=== PATIENT | female | born 2000 ===

== ENCOUNTER 2018-06-27 18:24 | Emergency (ER) | payer SELFPAY ==
[2018-06-27] MEDS ORDERED: FAMOTIDINE 20 MG TAB PO ONE (18:30)
[2018-06-27] MEDS ORDERED: NS 1,000 ML IV ONE (18:30)
[2018-06-27] MEDS ORDERED: predniSONE 20 MG TAB PO ONE (18:30)
--- NOTE | 2018-06-27 18:32 | EDPHY ---
H & P Time Seen by Provider: 06/27/18 18:24 HPI/ROS: CHIEF COMPLAINT: Allergic reaction HISTORY OF PRESENT ILLNESS: The patient is a 26 y/o female arriving via EMS from urgent care for evaluation of a possible allergic reaction after eating a scarlett around 16:00. Shortly after eating it she developed itchiness in her throat, hives on her extremities, and felt shaky. She has some prior history of reaction to mangos, but never this severe. She went to urgent care and by EMS report her BP was 70/40 so staff put her flat and put cold water on her. They did not administer any medications per EMS. On EMS arrival, she was alert and oriented with a BP of 110/40. EMS administered 50mg IV Benadryl and 4mg IV Zofran en route here. Patient currently complains of feeling shaky and cold. She denies throat tightness, pruritus, dyspnea, difficulty swallowing, lightheadedness, or other complaints. REVIEW OF SYSTEMS: A comprehensive 10 system review of systems is otherwise negative aside from elements mentioned in the history of present illness and medical decision making. Past medical history: Some prior reactions to mangoes Past surgical history: Denies Family history: Noncontributory Social history: Social alcohol and marijuana use. [employer] student. Friends at bedside. Adult Physical: General Appearance: Alert, no acute distress. Mildly tremulous. Eyes: Pupils equal and round, no conjunctival injection, no discharge. ENT, Mouth: Mucous membranes are moist, no oropharyngeal erythema or edema. No angioedema. No stridor. Neck: No lymphadenopathy, supple. Trachea midline. Respiratory: Lungs are clear to auscultation; no wheezes, rales, or rhonchi. Trachea midline. Cardiovascular: Regular rate and rhythm; no murmur, rub, or gallop. Gastrointestinal: Abdomen is soft and non tender, no masses or organomegaly. Skin: Skin is dry, hives on arms, splotchy macular erythema on legs. Distal extremities mildly cool. Back: Nontender to palpation over the thoracolumbar spine. Extremities: No lower extremity edema, no calf tenderness or swelling. Neurological: Alert and oriented. Moving all four extremities easily and equally. Psychiatric: Normal affect. Constitutional: Initial Vital Signs Temperature (C) 36.6 C 06/27/18 18:31 Heart Rate 86 06/27/18 18:31 Respiratory Rate 16 01/13/19 18:31 Blood Pressure 107/79 06/27/18 18:31 O2 Sat (%) 99 06/27/18 18:31 O2 Delivery Mode Room Air O2 (L/minute) 2 Allergies/Adverse Reactions: scarlett Allergy (Verified 06/27/18 18:31) Home Medications: Medication Instructions Recorded predniSONE 20 mg PO DAILY #3 tablet 06/27/18 Medical Decision Making ED Course/Re-evaluation: 18 y/o female presents from urgent care with improving throat tightness, hives, pruritus after eating mangoes this afternoon, which she thinks she is allergic to. Airway is patent and breath sounds are clear. She has scattered hives on her arms and on her legs on exam. Plan for monitoring and further symptom management with 1L IV NS, 40mg PO Pepcid, 60mg PO prednisone, in addition to the Benadryl and IV fluids that she has already received. She did not receive epinephrine and I do not think that she needs any at this point. Re-evaluated at 7:20 p.m.. She is resting comfortably. Lungs are clear. No oral pharyngeal edema. Hives diminished. Re-evaluated at 8:30 p.m.. Lungs are clear. Oropharynx without edema. No hives. She is being discharged home. Differential Diagnosis: I considered a differential diagnosis that includes but is not limited to anaphylaxis, urticaria, allergic reaction, angioedema, syncope. - Data Points Medications Given: Discontinued Medications Famotidine (Pepcid) 40 mg PO EDNOW ONE Stop: 06/27/18 18:31 Last Admin: 06/27/18 18:36 Dose: 40 mg Sodium Chloride (Ns) 1,000 mls @ 0 mls/hr IV ONCE ONE; Wide Open PRN Reason: Protocol Stop: 06/27/18 18:31 Last Admin: 06/27/18 18:35 Dose: 1,000 mls Prednisone (Prednisone) 60 mg PO EDNOW ONE Stop: 06/27/18 18:31 Last Admin: 06/27/18 18:36 Dose: 60 mg Departure - Departure Disposition: Home, Routine, Self-Care Clinical Impression: Allergic reaction Qualifiers: Encounter type: initial encounter Qualified Code(s): T78.40XA - Allergy, unspecified, initial encounter Condition: Good Instructions: Food Allergy (ED), Anaphylaxis (ED) Additional Instructions: Do not eat scarlett. Take the prednisone as prescribed for the next three days. Take Pepcid (buy it over the counter) for the next three days--this has antihistamine properties and will also help with any discomfort that you might have as a result of taking prednisone. If you develop itching or hives, take benadryl 25 mg ( follow instructions on the package). If you feel itchy try one of the Aveeno anti-itch lotions or Sarna lotion. I recommend following up with an route sales delivery driver. Referrals: [facility] Sanders,. [Clinic] - As per Instructions Prescriptions: predniSONE 20 mg PO DAILY #3 tablet Report Scribed for: Barbara Collado Report Scribed by: Dorcas See Date of Report: 06/27/18 Time of Report: 18:32 Physician Review and Approval Statement: 06/28/18 16:23 Portions of this note were transcribed by the hospital medical biller. I, Dr. Barbara Collado, personally performed the history, physical exam, and medical decision- making; and confirmed the accuracy of the information in the transcribed note.
[2018-06-27 20:38] VITALS: BP 100/58
== END 2018-06-27 20:37 | disposition home or self-care (01) ==
DX: T78.40XA Allergy, unspecified, initial encounter (principal)
CPT/HCPCS: J7512